=== PATIENT | female | born 1985 | race Caucasian/White ===

== ENCOUNTER 2017-02-17 20:07 | Inpatient (IN) | payer OTHER ==
--- NOTE | 2017-02-17 20:30 | ED PDOC ---
HPI: Psych/Substance Abuse Time Seen by Provider: 02/17/17 20:26 Chief Complaint (Nursing): Psychiatric Evaluation Chief Complaint (Provider): crisis eval History Per: EMS, Family Additional History Per: EMS, Family Additional Complaint(s): 32 y/o female no past medical history brought in by EMS with [id number] for crisis eval. Patient refusing to state why she is here. [id number] states patient has been fighting with her and tonight left and sent a text message with suicidal threats. [id number] states she called police when she received that text message and [place] was [place] the [place]. Past Medical History Reviewed: Historical Data, Nursing Documentation, Vital Signs Vital Signs: Last Vital Signs Temp 98.6 F 02/17/17 20:09 Pulse 92 H 02/17/17 20:09 Resp 16 02/17/17 20:09 BP 130/84 02/17/17 20:09 Pulse Ox 99 02/17/17 20:09 - Medical History PMH: No Chronic Diseases - Family History Family History: States: No Known Family Hx - Living Arrangements Living Arrangements: With Family - Social History Current smoker - smoking cessation education provided: No Alcohol: None Drugs: Denies - Immunization History Hx Tetanus Toxoid Vaccination: No Hx Influenza Vaccination: No Hx Pneumococcal Vaccination: No - Home Medications Home Medications: Ambulatory Orders Medication Instructions Recorded No Known Home Med 02/18/17 - Allergies Allergies/Adverse Reactions: Allergies Allergy/AdvReac Type Severity Reaction Status Date / Time No Known Allergies Allergy Unverified 05/01/13 22:15 Review of Systems ROS Statement: Except As Marked, All Systems Reviewed And Found Negative Psych: Positive for: Suicidal ideation Physical Exam - Reviewed Nursing Documentation Reviewed: Yes Vital Signs Reviewed: Yes - Physical Exam Appears: Positive for: Well, Non-toxic, Uncomfortable (guarded) Head Exam: Positive for: ATRAUMATIC, NORMAL INSPECTION, NORMOCEPHALIC Skin: Positive for: Normal Color Eye Exam: Positive for: Normal appearance ENT: Positive for: Normal ENT Inspection Cardiovascular/Chest: Positive for: Regular Rate, Rhythm Respiratory: Positive for: Normal Breath Sounds Gastrointestinal/Abdominal: Positive for: Normal Exam Back: Positive for: Normal Inspection Extremity: Positive for: Normal ROM Neurologic/Psych: Positive for: Alert, Oriented - Laboratory Results Result Diagrams: 02/17/17 21:00 02/17/17 21:00 - ECG ECG: Positive for: Viewed By Me (reviewed by ED attending) ECG Rhythm: Positive for: Sinus Bradycardia (59bpm) O2 Sat by Pulse Oximetry: 99 Pulse Ox Interpretation: Normal - Radiology X-Ray: Viewed By Me X-Ray Interpretation: No Acute Disease Medical Decision Making Medical Decision Making: Patient medically stable for psych admission. Disposition - Clinical Impression Clinical Impression: UTI (urinary tract infection), Depression - Patient ED Disposition Is Patient to be Admitted: Yes - Disposition Disposition Time: 01:57 Condition: STABLE
[2017-02-17 21:07] LABS: BASO # 0.1 K/uL (0.0-0.2); BASO % 0.5 % (0.0-2.0); EOS # 0.1 K/uL (0.0-0.7); HEMATOCRIT 39.4 % (34.0-47.0); LYMPH # 2.8 K/uL (1.0-4.3); LYMPH % 25.6 % (20.0-40.0); MEAN CELL VOLUME 83.5 fl (81.0-99.0); MEAN CORPUSCULAR HGB CONC 33.6 g/dL (33.0-37.0); MEAN PLATELET VOLUME 7.2 fl (7.2-11.7); MONO # 0.7 K/uL (0.0-0.8); MONO % 6.8 % (0.0-10.0); NEUT # 7.1 K/uL (1.8-7.0); NEUT % 66.1 % (50.0-75.0); NRBC % 0.2 % (0.0-0.0); RED CELL DISTRIBUTION WIDTH 13.2 % (11.5-14.5); WHITE BLOOD COUNT 10.8 K/uL (4.8-10.8)
[2017-02-17 21:10] LABS: URINE BACTERIA RARE (<OCC); URINE BILIRUBIN NEGATIVE (NEGATIVE); URINE BLOOD LARGE (NEGATIVE); URINE COLOR YELLOW (YELLOW); URINE GLUCOSE (UA) NEG (Normal); URINE KETONE NEGATIVE (NEGATIVE); URINE LEUKOCYTE ESTERASE LARGE Leu/uL (Negative); URINE PROTEIN NEGATIVE (NEGATIVE); URINE UROBILINOGEN 0.2-1.0 mg/dL (0.2-1.0)
[2017-02-17 21:16] LABS: RBC URINE 45 /hpf (0-3); WBC URINE 30 /hpf (0-5)
[2017-02-17 21:18] LABS: ALB/GLOB RATIO 1.3 (1.0-2.1); ALCOHOL SERUM < 10 mg/dl (0-10); ALKALINE PHOSPHATASE 83 U/L (38-126); ALT/SGPT 36 U/L (9-52); AST/SGOT 29 U/L (14-36); BILIRUBIN,TOTAL 0.3 mg/dl (0.2-1.3); BLOOD UREA NITROGEN 12 mg/dl (7-17); CALCIUM 9.5 mg/dL (8.4-10.2); CARBON DIOXIDE 25 mmol/L (22-30); CHLORIDE 105 mmol/L (98-107); GFR AFRICAN-AMERICAN > 60; GLUCOSE,RANDOM 94 mg/dL (65-105); POTASSIUM 3.8 MMOL/L (3.6-5.0); SODIUM 142 mmol/l (132-148); TOTAL PROTEIN 8.2 G/DL (6.3-8.2)
[2017-02-18 03:30] VITALS: O2SAT 98
--- NOTE | 2017-02-18 05:48 | PCM.BM ---
<Kelsey Zavala - Last Filed: 02/18/17 05:46> Treatment assets and liabiliti Patient Assests: cooperative, educated, self-reliant, ADL independent, physically healthy, negotiates basic needs, strong carolee Patient Liabilities: poor support system, relationship conflicts - Milieu Protocol Maintain good personal hygiene: daily Encourage regular showers, other Remind patient to perform daily oral care Conduct patient checks and document Observation sheet: Q15 minutes Maintain personal safety: every shift Educate patient to report safety concerns to staff, every shift Monitor environment for contraband/sharps Medication safety: Monitor for expected outcome, potential side effects: every shift, Assess barriers to learning: every shift, Assess readiness for medication education: every shift <Katina Ayala - Last Filed: 02/19/17 16:34> Treatment assets and liabiliti Patient Assests: adapts well, cooperative, educated, self-reliant, ADL independent, physically healthy, negotiates basic needs, cognitively intact, strong carolee Patient Liabilities: poor support system, relationship conflicts Family Contact Family involvement: Family/SO is involved Family contact: Patient agrees to contact, Family has been contacted by patient , Telephone contact initiated by staff Family contact name: Kelsey(mother cheli) ([phone]) Family contacted how many times per week?: 1 Family contact comment: Quotation Clerk placed call to patients mother in-law (Kelsey ) to collect further collateral and discuss precursors to hospitalization, progress on 3NP and aftercare. Quotation Clerk provided psychoeducation regarding nature of treatment provided on 3NP, patients dx and aftercare. Quotation Clerk emphasized importance of compliance with medications and aftercare to ensure safety/functioning in the community and reduce risk of future hospitalizations. Quotation Clerk explained importance of patient being given space and time to prioritize her treatment. Patients mother in-law expressed understanding of the above and stated that patients family in-law is committed to supporting patient and helping her comply with aftercare. Quotation Clerk notified family that patient is anticipated for discharge on Thursday - Outside Agency Agency 1 Care involvment: Other Agency contact name: [facility] Agency contact number: [phone] - Goals for Treatment Patient goals for treatment: Patient to continue stabilization on 3NP through medication management and group/supportive therapy. Patient to be encouraged to attend groups regularly to promote self-awareness, sobriety, and improve insight , coping skills and self-esteem. Patient to be provided with referral for appropriate level of aftercare to reduce risk of future hospitalizations and ensure safety in the community. Discharge/Continuing Care - Education Needs Education Needs: Family Medication, Family Diagnosis/Disease Process, Family Coping Skills, Family Community resources, Family Aftercare Safety Plan, Patient Medication, Patient Diagnosis/Disease Process, Patient Coping Skills, Patient Community resources, Patient Aftercare Safety Plan - Discharge Discharge Criteria: Tolerates medication w/o severe side effects, Free of Suicidal thoughts, Normal sleep pattern, Ability to care for self, Reduction of target symptoms Discharge to:: Home, With Family <Gibson Li - Last Filed: 02/21/17 09:19> Discharge/Continuing Care - Treatment Team Participation Patient/Family/SO Statement: 02/21/17 09:18 Pt reported that she is feeling brighter and safer. Pt is agreeable to staying through the weekend to rest, collect her thoughts, and continue to strengthen herself mentally. Pt also expressed that her and her want to work on their marriage. Pt reported that she no longer feels like harming herself or that would be the better options. Pt credits this mainly to a conversation she had with her father. Discussed with Family/SO: Yes Was Patient/Family/SO present at Treatment Team Meeting: Yes
[2017-02-18] MEDS ORDERED: Alum-Mag Hydrox-Simethicone Susp (30 mL) PO PRN (05:49)
[2017-02-18] MEDS ORDERED: DiphenhydrAMINE 50 mg/ml Inj IM PRN (05:49)
[2017-02-18] MEDS ORDERED: Magnesium Hydroxide Susp 30 ml UD PO PRN (05:49)
[2017-02-18 06:58] LABS: CHOLESTEROL 279 mg/dL (0-199)
--- NOTE | 2017-02-18 08:50 | RAD ---
HISTORY: Admission COMPARISON: 11/26/2010 TECHNIQUE: Chest PA and lateral FINDINGS: LUNGS: No active pulmonary disease. PLEURA: No significant pleural effusion identified. No pneumothorax apparent. CARDIOVASCULAR: Normal. OSSEOUS STRUCTURES: No significant abnormalities. VISUALIZED UPPER ABDOMEN: Normal. OTHER FINDINGS: None. IMPRESSION: No active disease. No significant interval change compared to the prior examination(s). Please note: No preliminary report/ innterpretation of this examination provided by emergency department personnel.
[2017-02-18 09:10] VITALS: RESP 18
--- NOTE | 2017-02-18 09:58 | CARD ---
APPROVED REPORT EKG Measurement Heart [id number] <Conclusion> Sinus bradycardia T wave abnormalities leads V1-V3
--- NOTE | 2017-02-18 14:59 | PCM.PSYCH ---
Initial Psychiatric Evaluation - Initial Psychiatric Evaluation Chief Complaint (in patient's own words): I GOT TIRED OF EVERYTHING Patient's Reaction to Hospitalization: PATIENT REQUESTED HELP History of Present Illness and Precipitating Events: PATIENT WITH PREVIOUS DIAGNOSIS OF DEPRESSION, NO PREVIOUS HOSPITALIZATION PATIENT HAS BEEN FEELING INCREASINGLY DEPRESSED, OVERWHELMED BY WORK ALSO FAILE INFERTILITY TREATMENT AND HAVING CONFLICT WITH PATIENT STARTED HAVING SUICIDAL IDEATIONS BROUGHT TO ER FOR HELP DENIED MANIC OR PSYCHOTIC SYMPTOMS DENIED SUBSTANCE ABUSE Current Medications: Active Medications Generic Name Dose Route Start Last Admin Trade Name Freq PRN Reason Stop Dose Admin Acetaminophen 650 mg 02/18/17 05:49 Tylenol 325mg Tab PO Q4 PRN Pain, moderate (4-7) Al Hydrox/Mg Hydrox/Simethicone 30 ml 02/18/17 05:49 Maalox Plus 30 Ml PO Q4 PRN Dyspepsia Diphenhydramine HCl 50 mg 02/18/17 05:49 Benadryl IM Q6 PRN Extrapyramidal S/S Unable PO Diphenhydramine HCl 50 mg 02/18/17 05:49 Benadryl PO Q6 PRN Extrapyramidal Symptoms Escitalopram Oxalate 5 mg 02/18/17 13:45 Lexapro PO DAILY WARNER Haloperidol 5 mg 02/18/17 05:49 Haldol PO Q4 PRN Agitation Haloperidol Lactate 5 mg 02/18/17 05:49 Haldol IM Q4 PRN Agitation, Unable to Take PO Lorazepam 2 mg 02/18/17 05:49 Ativan IM Q4 PRN Anxiety/Agitation,Unable PO Lorazepam 2 mg 02/18/17 05:49 Ativan PO Q4 PRN Anxiety/Agitation Magnesium Hydroxide 30 ml 02/18/17 05:49 Milk Of Magnesia PO HS PRN Constipation Past Psychiatric History - Past Psychiatric History Prior Professional Help: OUTPATIENT AT AGE 12 NO INPATIENTTREATMENT History of Abuse: DENIED History of ETOH/Drug Use: DENIED History of Family Illness: ONE COUSUIN HISTORY OF DEPRESSION AND SUICIDE Pertinent Medical Hx (Current Medical&Sleep Prob, Allergies): Allergies Allergy/AdvReac Type Severity Reaction Status Date / Time No Known Allergies Allergy Unverified 05/01/13 22:15 No Known Home Med 02/18/17 Mental Status Examination - Personal Presentation Personal Presentation: Looks stated age - Affect Affect: Depressed - Motor Activity Motor Activity: Psychomotor Retardation - Reliability in Providing Information Reliability in Providing Information: Good - Mood Mood: Depressed, Anxious - Formal Thought Process Formal Thought Process: No Impairment - Obsessions/Compulsions Obsessions: No Compulsions: No - Cognitive Functions Orientation: Person, Place Sensorium: Alert Attention/Concentration: Attentive Memory: Recent intact, as evidence by: Ability to recall events of the day - Risk Risk: Suicidal - Strength & Assets Inventory Strength & Assets Inventory: Family support, Employment status - Limitations Additional comments: SOCIAL STRESSORS DSM 5 DX - DSM 5 DSM 5 Diagnosis: MAJOR DEPRESSION RECURRENT SEVERE - Recommended/Plan of Treatment Treatment Recommendations and Plan of Treatment: START LEXAPRO 5MG WITH PLAN TO UPTITRATE PSYCHOTHERAPY
--- NOTE | 2017-02-18 15:18 | CP.PCM.CON ---
History of Present Illness - History of Present Illness History of Present Illness: 32 yo female with history of Depression admitted to psyche unit because of worsening depression and suicidal ideations. Review of Systems - Review of Systems All systems: reviewed and no additional remarkable complaints except (aside from those mentioned above, 12 point system review were negative by me) Past Patient History - Tetanus Immunizations Tetanus Immunization: Unknown - Past Social History Smoking Status: Never Smoked Alcohol: None Drugs: Denies - CARDIAC Hx Cardiac Disorders: No - PULMONARY Hx Tuberculosis: No - NEUROLOGICAL HX Cerebrovascular Accident: No Hx Seizures: No - HEENT Hx HEENT Problems: No - RENAL Hx Chronic Kidney Disease: No - ENDOCRINE/METABOLIC Hx Endocrine Disorders: No - HEMATOLOGICAL/ONCOLOGICAL Hx Cancer: No Hx Human Immunodeficiency Virus (HIV): No - INTEGUMENTARY Hx Dermatological Problems: No - MUSCULOSKELETAL/RHEUMATOLOGICAL Hx Musculoskeletal Disorders: No - GASTROINTESTINAL Hx Gastrointestinal Disorders: No - GENITOURINARY/GYNECOLOGICAL Hx Sexually Transmitted Disorders: No Hx Urinary Tract Infection: Yes - PSYCHIATRIC Hx Substance Use: No - SURGICAL HISTORY Hx Surgeries: No - ANESTHESIA Hx Anesthesia: No Has any member of the family had a problem w/ anesthesia?: No Meds Allergies/Adverse Reactions: Allergies Allergy/AdvReac Type Severity Reaction Status Date / Time No Known Allergies Allergy Unverified 05/01/13 22:15 - Medications Medications: Current Medications Acetaminophen (Tylenol 325mg Tab) 650 mg PO Q4 PRN PRN Reason: Pain, moderate (4-7) Al Hydrox/Mg Hydrox/Simethicone (Maalox Plus 30 Ml) 30 ml PO Q4 PRN PRN Reason: Dyspepsia Diphenhydramine HCl (Benadryl) 50 mg IM Q6 PRN PRN Reason: Extrapyramidal S/S Unable PO Diphenhydramine HCl (Benadryl) 50 mg PO Q6 PRN PRN Reason: Extrapyramidal Symptoms Escitalopram Oxalate (Lexapro) 5 mg PO DAILY WARNER Haloperidol (Haldol) 5 mg PO Q4 PRN PRN Reason: Agitation Haloperidol Lactate (Haldol) 5 mg IM Q4 PRN PRN Reason: Agitation, Unable to Take PO Lorazepam (Ativan) 2 mg IM Q4 PRN PRN Reason: Anxiety/Agitation,Unable PO Lorazepam (Ativan) 2 mg PO Q4 PRN PRN Reason: Anxiety/Agitation Magnesium Hydroxide (Milk Of Magnesia) 30 ml PO HS PRN PRN Reason: Constipation Physical Exam - Constitutional Appears: No Acute Distress - Head Exam Head Exam: ATRAUMATIC - Eye Exam Eye Exam: absent: Scleral icterus - ENT Exam ENT Exam: Mucous Membranes Moist - Neck Exam Neck exam: Negative for: Meningismus - Respiratory Exam Respiratory Exam: absent: Rhonchi, Wheezes, Respiratory Distress - Cardiovascular Exam Cardiovascular Exam: REGULAR RHYTHM, +S1, +S2 - GI/Abdominal Exam GI & Abdominal Exam: Soft. absent: Tenderness - Rectal Exam Rectal Exam: Deferred - Extremities Exam Extremities exam: Negative for: pedal edema - Neurological Exam Neurological exam: Alert, Oriented x3 - Psychiatric Exam Psychiatric exam: Normal Affect - Skin Skin Exam: Dry, Intact Results - Vital Signs Recent Vital Signs: Last Vital Signs Temp 97.0 F L 02/18/17 09:00 Pulse 68 02/18/17 09:00 Resp 18 02/18/17 09:00 BP 122/87 02/18/17 09:00 Pulse Ox 98 02/18/17 02:50 - Labs Result Diagrams: 02/17/17 21:00 02/17/17 21:00 Labs: Laboratory Results - last 24 hr 02/17/17 02/17/17 02/17/17 20:50 20:50 21:00 WBC RBC Hgb Hct MCV MCH MCHC RDW Plt Count MPV Neut % (Auto) Lymph % (Auto) [place] % (Auto) Eos % (Auto) Baso % (Auto) Neut # Lymph # [place] # Eos # Baso # Sodium 142 Potassium 3.8 Chloride 105 Carbon Dioxide 25 Anion Gap 16 BUN 12 Creatinine 0.7 Est GFR ( Amer) > 60 Est GFR (Non-Af Amer) > 60 Random Glucose 94 Hemoglobin A1c Calcium 9.5 Total Bilirubin 0.3 AST 29 ALT 36 Alkaline Phosphatase 83 Total Protein 8.2 Albumin 4.7 Globulin 3.6 Albumin/Globulin Ratio 1.3 Triglycerides Cholesterol LDL Cholesterol Direct HDL Cholesterol Urine Color Yellow Urine Clarity Cloudy Urine pH 5.0 Ur Specific Etta 1.020 Urine Protein Negative Urine Glucose (UA) Neg Urine Ketones Negative Urine Blood Large Urine Nitrate Negative Urine Bilirubin Negative Urine Urobilinogen 0.2-1.0 Ur Leukocyte Esterase Large Urine RBC (Auto) 45 H Urine Microscopic WBC 30 H Ur Squamous Epith Cells 6 H Urine Bacteria Rare Urine Opiates Screen Negative Urine Methadone Screen Negative Ur Barbiturates Screen Negative Ur Phencyclidine Scrn Negative Ur Amphetamines Screen Negative U Benzodiazepines Scrn Negative U Oth Cocaine Metabols Negative U Cannabinoids Screen Negative Alcohol, Quantitative < 10 02/17/17 02/18/17 02/18/17 21:00 06:15 06:15 WBC 10.8 RBC 4.72 Hgb 13.2 Hct 39.4 MCV 83.5 MCH 28.0 MCHC 33.6 RDW 13.2 Plt Count 291 MPV 7.2 Neut % (Auto) 66.1 Lymph % (Auto) 25.6 [place] % (Auto) 6.8 Eos % (Auto) 1.0 Baso % (Auto) 0.5 Neut # 7.1 H Lymph # 2.8 [place] # 0.7 Eos # 0.1 Baso # 0.1 Sodium Potassium Chloride Carbon Dioxide Anion Gap BUN Creatinine Est GFR ( Amer) Est GFR (Non-Af Amer) Random Glucose Hemoglobin A1c 5.2 Calcium Total Bilirubin AST ALT Alkaline Phosphatase Total Protein Albumin Globulin Albumin/Globulin Ratio Triglycerides 115 Cholesterol 279 H LDL Cholesterol Direct 199 H HDL Cholesterol 51 Urine Color Urine Clarity Urine pH Ur Specific [place] Urine Protein Urine Glucose (UA) Urine Ketones Urine Blood Urine Nitrate Urine Bilirubin Urine Urobilinogen Ur Leukocyte Esterase Urine RBC (Auto) Urine Microscopic WBC Ur Squamous Epith Cells Urine Bacteria Urine Opiates Screen Urine Methadone Screen Ur Barbiturates Screen Ur Phencyclidine Scrn Ur Amphetamines Screen U Benzodiazepines Scrn U Oth Cocaine Metabols U Cannabinoids Screen Alcohol, Quantitative Assessment & Plan (1) Depression Status: Chronic Comment: psyche is managing (2) Suicidal ideation Status: Acute Comment: psyche is managing
[2017-02-19 08:09] LABS: T4 7.58 ug/dl (5.5-11.0)
[2017-02-19 08:23] LABS: THYROID STIMULATING HORMONE 2.92 mIU/ML (0.46-4.68)
--- NOTE | 2017-02-19 19:02 | PCM.PYCHPN ---
Psychiatric Progress Note - Psychiatric Progress Note Patient seen today, length of contact: PATIENT EVALUATED DISCUSSED WITH TEAM CHART REVIEWED Patient Chief Complaint: I FEEL LIFE IS SO HARD Problems Identified/Issues Discussed: PATIENT REPORTED FEELING DEPRESSED AND OVERWHELMED DUE TO CONATANT DEMANDS BY HER FAMILY AT HOME AND HER HUSBANDS FAMILY REPORTED PASSIVE SUICIDAL IDEATIONS THAT SHE DOES NOT CARE IF SHE IS HERE BUT DENIED ANY SUICIDAL IDEATIONS OR PLANS ON THE UNIT BRIEF CBT PROVIDED Medication Change: Yes (INCREASE LEXAPRO TO 10MG) Mental Status Examination - Cognitive Function Orientation: Person, Place Attention: WNL Concentration: WNL Association: WNL Fund of Knowledge: WNL - Mood Mood: Depressed, Anxious - Affect Affect: Constricted, Depressed - Speech Speech: Soft - Formal Thought Process Formal Thought Process: No Impairment - Suicidal Ideation Suicidal Ideation: No - Homicidal Ideation Homicidal Ideation: No Goal/Treatment Plan - Goal/Treatment Plan Need for Continued Stay: Severe depression anxiety Progress Toward Problem(s) and Goals/Treatment Plan: PSYCHOTHERAPYINCREASE LEXAPRO TO 10MG SUPPORTIVE THERAPY PROVIDED
--- NOTE | 2017-02-20 14:45 | PCM.PYCHPN ---
Psychiatric Progress Note - Psychiatric Progress Note Patient seen today, length of contact: PATIENT EVALUATED DISCUSSED WITH TEAM CHART REVIEWED Patient Chief Complaint: i spoke with my dad and i felt better Problems Identified/Issues Discussed: PATIENT REPORTED FEELING LESS DEPRESSED , STATED THAT SHE HAD A CONVERSATION WITH HER DAD LAST NIGHT AND FELT BETTER SHE ALSO STARTED TO CHALLENGE HER NEGATIVE THOUGHTS AND STARTED TO REALIZE THAT SHE DOES NOT WANT TO BE IN THE SAME PLACE SHE WAS IN BEFORE SHE REALIZES SHE HAS A LOT OF POSITIVES IN HER LIFE TO LIVE FOR PATIENT SHOWING MORE INSIGHT INTO ILLNESS AND DENIED ANY CURRENT THOUGHTS TO HURT HERSELF DENIED ANY SIDE EFFECTS OF MEDICATIONS, ATTENDING GROUPS Medication Change: No Medical Record Reviewed: Yes Mental Status Examination - Cognitive Function Orientation: Person, Place Attention: WNL Concentration: WNL Association: WNL Fund of Knowledge: WNL - Mood Mood: Neutral - Affect Affect: Constricted - Speech Speech: Appropriate - Formal Thought Process Formal Thought Process: No Impairment - Suicidal Ideation Suicidal Ideation: No - Homicidal Ideation Homicidal Ideation: No Goal/Treatment Plan - Goal/Treatment Plan Need for Continued Stay: Discharge may exacerbated symptoms Progress Toward Problem(s) and Goals/Treatment Plan: PATIENT RESPONDING WELL TO CURRENT MEDICATION REGIMEN CONTINUE WITH LEXAPRO 10MG BRIEF CBT PROVIDED Estimated Date of D/C: 02/23/17 - Smoking Cessation Smoking Cessation Initiated: No
[2017-02-21 00:08] LABS: RBC URINE 2 /hpf (0-3); URINE BILIRUBIN NEGATIVE (NEGATIVE); URINE BLOOD MODERATE (NEGATIVE); URINE COLOR YELLOW (YELLOW); URINE GLUCOSE (UA) NEG (Normal); URINE KETONE NEGATIVE (NEGATIVE); URINE LEUKOCYTE ESTERASE MOD Leu/uL (Negative); URINE PROTEIN NEGATIVE (NEGATIVE); URINE UROBILINOGEN 0.2-1.0 mg/dL (0.2-1.0); WBC URINE 3 /hpf (0-5)
--- NOTE | 2017-02-21 16:01 | PCM.PYCHPN ---
Psychiatric Progress Note - Psychiatric Progress Note Patient seen today, length of contact: Chart reviewed, case discussed with team min Patient Chief Complaint: was feeling down negative thoughts about family working on reversing said feeling. adherent with medications and treatment denies side effects. sleeping and eating well Problems Identified/Issues Discussed: alteration in mood Medical Problems: per chart Diagnostic Results: per psychiatry per medicine per nursing per social work DSM 5 Symptoms Update: alteration in mood Medication Change: No Medical Record Reviewed: Yes Consults ordered or reviewed: medical consult Mental Status Examination - Cognitive Function Orientation: Person, Place Attention: WNL Concentration: WNL Association: WNL Fund of Knowledge: WN Decription of patient's judgement and insights: impaired - Mood Mood: Neutral - Affect Affect: Constricted - Speech Speech: Appropriate - Formal Thought Process Formal Thought Process: No Impairment - Suicidal Ideation Suicidal Ideation: No - Homicidal Ideation Homicidal Ideation: No Goal/Treatment Plan - Goal/Treatment Plan Need for Continued Stay: Discharge may exacerbated symptoms Progress Toward Problem(s) and Goals/Treatment Plan: inpt milieu adjust meds per status vital signs and clinical observation per protocol and per status discharge planning in progress Estimated Date of D/C: 02/23/17 - Smoking Cessation Smoking Cessation Initiated: No Reason for not providing: defers
--- NOTE | 2017-02-22 18:43 | PCM.PYCHPN ---
Psychiatric Progress Note - Psychiatric Progress Note Patient seen today, length of contact: Chart reviewed, case discussed with team min Patient Chief Complaint: pt seen in milieu, watching tv (appears) with select peers, reports sleeping and eating well, taking rx. as prescribed-denies notable side effects, feeling less anxious and depressed, staff report pt is adherent with treament Problems Identified/Issues Discussed: alteration in mood Medical Problems: per chart Diagnostic Results: per psychiatry per medicine per nursing per social work DSM 5 Symptoms Update: resolving alteration in mood Medication Change: No Medical Record Reviewed: Yes Consults ordered or reviewed: hospitalist Mental Status Examination - Cognitive Function Orientation: Person, Place Attention: WNL Concentration: WNL Association: WNL Fund of Knowledge: WN Decription of patient's judgement and insights: impaired/improving - Mood Mood: Neutral - Affect Affect: Constricted - Speech Speech: Appropriate - Formal Thought Process Formal Thought Process: No Impairment - Suicidal Ideation Suicidal Ideation: No - Homicidal Ideation Homicidal Ideation: No Goal/Treatment Plan - Goal/Treatment Plan Need for Continued Stay: Discharge may exacerbated symptoms Progress Toward Problem(s) and Goals/Treatment Plan: inpt milieu adjust meds per status vital signs and clinical observation per protocol and per status discharge planning in progress Estimated Date of D/C: 02/23/17 - Smoking Cessation Smoking Cessation Initiated: No Reason for not providing: defers
[2017-02-23 09:13] VITALS: BP 150/83; PULSE 92; TEMP 97.9
--- NOTE | 2017-02-23 12:41 | PCM.PYCHDC ---
Mental Status Examination - Mental Status Examination Orientation: Person, Place, Situation, Time Memory: Intact Mood: Neutral Affect: Broad Speech: Appropriate Attention: WNL Concentration: WNL Association: WNL Fund of Knowledge: WNL Formal Thought Process: No Impairment Suicidal Ideation: No Current Homicidal Ideation?: No Discharge Summary - Discharge Note Reason for Hospitalization: PATIENT with previous diagnosis of depression, reportedly has been feeling overwhelmed due to requirments by parents from oversees, failed attempts to become pregnanat and conflict with family, patient started to have suicidal ideations went to [employer] station contemplating suicide and finally texted her who called police and patien was brought to er Psychiatric History (includes Medical, Family, Personal Hx): psychotherapy at age 10 Consultations:: List each consultation separately and include: 1. Reason for request. 2. Findings. 3. Follow-up Consultations: patient on admission was started on lexapro was uptitrated to 10mg CBT provided , patient attended groups, gradually showed brighter affect and insight into illnes on discharge was stable and denied any suicidal or homicidal ideations Summary of Hospital Course include:: 1. Description of specific treatment plan utilized for patients during their course of treatmen. 2. Summarize the time- course for resolution of acute symptoms and/or regressed behaviors. 3. Describe issues identified and worked on during hospitalization. 4. Describe medication utilized. 5. Describe medical problems identified and treated. 6. Reassessment of suicide risk Summary of Hospital Course: PATIENT WITH PREVIOUS DIAGNOSIS OF DEPRESSION, NO PREVIOUS HOSPITALIZATION PATIENT HAS BEEN FEELING INCREASINGLY DEPRESSED, OVERWHELMED BY WORK ALSO FAILE INFERTILITY TREATMENT AND HAVING CONFLICT WITH PATIENT STARTED HAVING SUICIDAL IDEATIONS BROUGHT TO ER FOR HELP DENIED MANIC OR PSYCHOTIC SYMPTOMS DENIED SUBSTANCE ABUSE patient on admission was started on lexapro was uptitrated to 10mg CBT provided , patient attended groups, gradually showed brighter affect and insight into illnes on discharge was stable and denied any suicidal or homicidal ideations - Diagnosis (1) Major depression, recurrent Current Visit: Yes Status: Acute - Final Diagnosis (DSM 5) Condition upon Discharge: STABLE Disposition: HOME/ ROUTINE Follow-up Treatment Plan: outpatient Prescriptions/Medication Reconciliation: Escitalopram [Lexapro] 10 mg PO DAILY 30 Days #30 tab - Smoking Cessation Smoking Cessation Medication prescribed: No Reason for not providing: pt denied
== END 2017-02-23 14:22 | disposition home or self-care (01) | DRG 430 ==
LOC: H.ER 20:07 → H.ERHOLD 02-18 01:58 → H.PSYCH 02-18 03:25
PROVIDERS: ADMIT Psychiatry & Neurology Psychiatry; ATTEND Psychiatry & Neurology Psychiatry
PROC: GZHZZZZ Group Psychotherapy (ICD-10-PCS; principal; 2017-02-18)
PROC: GZ51ZZZ Individual Psychotherapy, Behavioral (ICD-10-PCS; 2017-02-18)
DX: F33.2 Major depressive disorder, recurrent severe without psychotic features (principal); R45.851 Suicidal ideations; N39.0 Urinary tract infection, site not specified; Z87.440 Personal history of urinary (tract) infections